=== PATIENT | male | born 1985 | race Caucasian/White ===

== ENCOUNTER 2020-08-22 06:29 | Day surgery (SDC) | payer BC, OTHER ==
[~2020-08-22] VITALS: Ht 172.7 cm; Wt 64.0 kg
--- NOTE | ~2020-08-22 | O ---
[facility] [place] [address] OPERATIVE REPORT Name: BRIE GONSALEZ Room #: 150-3 [facility]..#: [id number] Admission: 08/22/20 Attend Phys: Denny Leslie MD Discharge: Date of : 83 Report #: [id number] THIS REPORT FOR: cc: Dameon Leigh David J. DO Franey, Thomas A. MD ~ DOC #: [id number] cc: DO Denny Mccormick MD DATE OF SERVICE: 08/22/2020 PREOPERATIVE DIAGNOSIS: Right inguinal hernia. POSTOPERATIVE DIAGNOSIS: Right inguinal hernia with right cord lipoma. PROCEDURE: Right inguinal hernia repair with Prolene hernia system mesh and excision of a right cord lipoma. SURGEON: Denny Leslie M.D. ANESTHESIA: Local IV sedation. DESCRIPTION OF PROCEDURE: The patient was brought to the operating room and placed on the operating table in the supine position. Sequential compression devices were in place for DVT prophylaxis. There was no indication of preoperative antibiotics. The patient underwent IV sedation. The right inguinal area was prepped and draped in a sterile fashion. Skin and subcutaneous tissue were then infiltrated with 0.5% Marcaine 1% Xylocaine with epinephrine. Right inguinal skin incision was then performed using a #10 scalpel blade. Hemostasis obtained using electrocautery as well as clamps and 2-0 chromic ties. Dissection was carried down through the subcutaneous tissue, the external oblique fascia, which was then incised with a knife and opened with the Metzenbaum scissors. The ilioinguinal nerve was identified, dissected free, injected with a local mixture and preserved. The cord was then elevated and held in place with a Fredy drain. Cremasteric muscle fibers were then split in the direction of their fibers using clamp and electrocautery. An indirect inguinal hernia sac was identified and dissected free along with a cord lipoma. Cord lipoma was excised and sent to pathology as a specimen. The indirect inguinal hernia sac was dissected free and reduced back through the internal ring and the preperitoneal space was then developed using blunt dissection. The floor was inspected and found to be intact, but it was somewhat weakened and ectatic with a widened internal ring. The floor was then reinforced and the ring was tightened with a running 2-0 Prolene 2 layer Bassini repair. The mesh was overlay patch was then deployed into the inguinal canal and secured at the pubic tubercle with the same running 2-0 Prolene suture. The mesh was then [address] [address] OPERATIVE REPORT Name: BRIE GONSALEZ Room #: 150-3 [facility] M.R.#: [id number] Admission: 08/22/20 Attend Phys: Denny Lesile MD Discharge: Date of : 83 Report #: [id number] secured superiorly and at the connector using simple interrupted 2-0 Vicryl sutures. The mesh was split and wrapped around the cord, secured to the inguinal ligament. Simple interrupted 2-0 Vicryl suture. The cord and ilioinguinal nerve were then returned to the canal intact. The external oblique fascia was then closed using running 2-0 Vicryl suture. Jerome's fascia was then reapproximated using 3 simple interrupted 2-0 chromic sutures. The skin was then closed with a running 4-0 subcuticular Vicryl stitch. The wound was then dressed with Mastisol, half inch Steri-Strips cut in half, Telfa, 4 x 4 gauze, sponge, and tape. The patient was then taken to the recovery room awake, alert and in good condition. Estimated blood loss was approximately 10 mL and the patient tolerated the procedure well. All sponge, lap and instrument counts were correct x2. MD TY Hutton/WEST By: [id number] Denny Leslie MD /nt
[~2020-08-22 06:29] MED LIST: FISH OIL 1,0001 EAC9 PO; TRAMADOL 50 MG50 MG PO
[2020-08-22] MEDS ORDERED: HYDROCODON-ACE1 EAC7 PO (08:44)
[2020-08-22 09:26] VITALS: BP 101/66
[2020-08-22 10:31] VITALS: BP 101/66
== END 2020-08-22 11:00 | disposition home or self-care (01) ==
LOC: TBA 06:29 → OR 06:29 → TBA 06:33 → OR 07:53
PROVIDERS: ATTEND Surgery
DX: K40.90 Unilateral inguinal hernia, without obstruction or gangrene, not specified as recurrent (principal); D17.6 Benign lipomatous neoplasm of spermatic cord; Z98.890 Other specified postprocedural states; Z79.899 Other long term (current) drug therapy; Z87.891 Personal history of nicotine dependence
CPT/HCPCS: 50010; 50101; 50386; 50417; 56524; 56525; 56526; 56528; 58646; 62110; 62850; 70005